=== PATIENT | female | born 2000 | race Caucasian/White ===

== ENCOUNTER 2021-06-01 12:41 | Observation (INO) | payer MEDICAID, OTHER ==
[~2021-06-01] VITALS: Ht 167.6 cm; Wt 111.1 kg
[2021-06-01] MEDS ORDERED: [UNRECOGNIZED DRUG - CODE] (12:53)
== END 2021-06-01 16:55 | disposition home or self-care (01) ==
LOC: 8 EST LDRP 12:41
PROVIDERS: ADMIT Obstetrics & Gynecology; ATTEND Obstetrics & Gynecology
DX: O26.893 Other specified pregnancy related conditions, third trimester (principal); R10.9 Unspecified abdominal pain; Z3A.32 32 weeks gestation of pregnancy
CPT/HCPCS: 59025; 76805; 76818; G0378; 99281; G0379

== ENCOUNTER 2021-07-14 17:11 | Inpatient (IN) | payer OTHER ==
[~2021-07-14] VITALS: Ht 167.6 cm; Wt 119.7 kg
[~2021-07-14 17:11] MED LIST: [UNRECOGNIZED DRUG - CODE]
[2021-07-14] MEDS ORDERED: LIDOCAINE HCL 1% 20ML VIAL (Pyxis) INJ INFIL SCH (18:00)
[2021-07-14] MEDS ORDERED: NALOXONE HCL 0.4 MG/ML 1ML VIAL IM PRN (18:00)
[2021-07-14] MEDS ORDERED: CARBOPROST TROMETHAMINE 250 MCG/ML AMPUL IM PRN (18:00)
[2021-07-14] MEDS ORDERED: RHO(D) IMMUNE GLOBULIN 300 MCG/SYR IM ONE (18:00)
[2021-07-14] MEDS ORDERED: DEXT 5%/LR + PITOCIN 20UNITS/L 1,000 ML IV SCH ×2 (18:00→21:15)
[2021-07-14] MEDS ORDERED: METHYLERGONOVINE MALEATE 0.2 MG/ML IM PRN (18:00)
[2021-07-14] MEDS ORDERED: BUTORPHANOL TARTRATE 2 MG/ML VIAL IV PRN (18:00)
[2021-07-14] MEDS: LACTATED RINGERS 1,000 ML IV SCH ×2 (18:09→19:30)
[2021-07-14] MEDS ORDERED: PENICILLIN G POTASSIUM 5 MMU in DEXT 5% WATER 100 ML IV SCH (18:30)
[2021-07-14 18:36] LABS: BASOPHILS % 0.5 % (0.0-2.0); EOSINOPHILS % 0.3 % (0.0-5.0); HEMATOCRIT. 26.9 % (36.0-48.0); HEMOGLOBIN. 8.2 g/dL (12.0-16.0); LYMPHOCYTES % 19.5 % (20.0-50.0); MEAN CORPUSCULAR HEMOGLOBIN 19.4 pg (28.0-32.0); MEAN CORPUSCULAR VOLUME 63.7 fL (81.0-99.0); MEAN PLATELET VOLUME 9.2 fl (7.4-10.4); MONOCYTES % 6.4 % (2.0-8.0); NEUTROPHILS % 73.3 % (40.0-76.0); PLATELET 475 x1000/uL (130-400); RED BLOOD CELL COUNT 4.22 mill/uL (4.2-5.4); RED CELL DISTRIBUTION WIDTH 19.9 % (11.6-14.6)
[2021-07-14 18:44] LABS: CLARITY URINE CLOUDY (CLEAR); COLOR URINE YELLOW (YELLOW); KETONES URINE NEGATIVE (NEGATIVE); LEUKOCYTE ESTERASE URINE TRACE (NEGATIVE); NITRITE URINE NEGATIVE (NEGATIVE); OCCULT BLOOD URINE TRACE (NEGATIVE); PH URINE 6.5 (4.5-8.0); PROTEIN URINE NEGATIVE (NEGATIVE); SPECIFIC GRAVITY URINE 1.011 (1.005-1.030)
[2021-07-14 18:49] LABS: CHLORIDE 107 mEq/L (98-107)
[2021-07-14 18:51] LABS: INR 0.9; PARTIAL THROMBOPLASTIN TIME 26.8 sec (23.4-31.0); PROTHROMBIN TIME 9.9 sec (9.6-11.0)
[2021-07-14 18:57] LABS: *AMPHETAMINES SCREEN URINE NEGATIVE (NEGATIVE); *BARBITURATES SCREEN URINE NEGATIVE (NEGATIVE); *BENZODIAZEPINES SCREEN URINE NEGATIVE (NEGATIVE); *COCAINE SCREEN URINE NEGATIVE (NEGATIVE); CANNABINOID URINE SCREEN NEGATIVE (NEGATIVE); METHADONE URINE SCREEN NEGATIVE (NEGATIVE); OPIATES URINE SCREEN NEGATIVE (NEGATIVE); PHENCYCLIDINE URINE SCREEN NEGATIVE (NEGATIVE)
[2021-07-14 19:17] LABS: HEPATITIS B SURFACE ANTIGEN NEGATIVE
[2021-07-14 19:33] LABS: PLATELET ESTIMATE SLIGHTLY INCREASED
[2021-07-14] MEDS ORDERED: ROPIVACAINE HCL/PF EPIDURAL 200 ML EPI SCH (20:15)
[2021-07-14] MEDS ORDERED: LANOLIN OINT 7GM TUBE TOP PRN (21:15)
[2021-07-14] MEDS ORDERED: IBUPROFEN 400MG TABLET PO PRN (21:15)
[2021-07-14] MEDS ORDERED: BISACODYL 10MG SUPP PR PRN (21:15)
[2021-07-14] MEDS ORDERED: IBUPROFEN 800MG TABLET PO PRN (21:15)
[2021-07-14] MEDS ORDERED: HEMORRHOIDAL SUPP PR PRN (21:15)
[2021-07-14] MEDS ORDERED: DIPHENHYDRAMINE 25MG CAPSULE PO PRN (21:15)
[2021-07-14] MEDS ORDERED: BENZOCAINE/LANOLIN/ALOE VERA SPRAY TOP PRN (21:15)
[2021-07-14] MEDS ORDERED: GLYCERIN/WITCH HAZEL LEAF MEDICATED PAD TOP PRN (21:15)
[2021-07-14 22:40] VITALS: BP 119/57
[2021-07-14] MEDS ORDERED: PENICILLIN G POTASSIUM 2.5 MMU in DEXTROSE 5% WATER 50 ML IV SCH (23:00)
[2021-07-14 23:10] VITALS: BP 115/60
[2021-07-14 23:40] VITALS: BP 120/72
[2021-07-15] MEDS ORDERED: IBUPROFEN 400MG TABLET PO PRN (00:15)
[2021-07-15] MEDS ORDERED: HEMORRHOIDAL SUPP PR PRN (00:15)
[2021-07-15] MEDS ORDERED: BENZOCAINE/LANOLIN/ALOE VERA SPRAY TOP PRN (00:15)
[2021-07-15] MEDS ORDERED: GLYCERIN/WITCH HAZEL LEAF MEDICATED PAD TOP PRN (00:15)
[2021-07-15 03:15] VITALS: BP 106/59
[2021-07-15 05:41] LABS: BASOPHILS % 0.5 % (0.0-2.0); EOSINOPHILS % 0.2 % (0.0-5.0); HEMATOCRIT. 23.1 % (36.0-48.0); HEMOGLOBIN. 7.1 g/dL (12.0-16.0); MEAN CORPUSCULAR HEMOGLOBIN 19.6 pg (28.0-32.0); MEAN CORPUSCULAR VOLUME 63.5 fL (81.0-99.0); MEAN PLATELET VOLUME 9.1 fl (7.4-10.4); MONOCYTES % 5.6 % (2.0-8.0); NEUTROPHILS % 77.7 % (40.0-76.0); PLATELET 400 x1000/uL (130-400); RED BLOOD CELL COUNT 3.63 mill/uL (4.2-5.4); RED CELL DISTRIBUTION WIDTH 19.8 % (11.6-14.6)
[2021-07-15] MEDS ORDERED: FERROUS SULFATE 325MG TABLET PO SCH (09:00)
[2021-07-15] MEDS ORDERED: PRENATAL VIT/FE FUMARATE/FA TABLET PO SCH (09:00)
[2021-07-15] MEDS ORDERED: SIMETHICONE 80MG TABLET CHEW PO SCH (09:00)
[2021-07-15 09:30] VITALS: BP 115/62
[2021-07-15 15:30] VITALS: BP 94/58
[2021-07-15 20:00] VITALS: BP 112/63
[2021-07-15] MEDS: ACETAMINOPHEN WITH CODEINE 300/30MG TABLET PO PRN (20:48)
[2021-07-15] MEDS ORDERED: DOCUSATE SODIUM 100MG CAPSULE PO SCH ×2 (21:00)
[2021-07-16 03:40] VITALS: BP 117/56
[2021-07-16] MEDS: ACETAMINOPHEN WITH CODEINE 300/30MG TABLET PO PRN (03:45)
[2021-07-16] MEDS ORDERED: FERROUS SULFATE 325MG TABLET PO SCH (07:30)
[2021-07-16 07:42] LABS: BASOPHILS % 0.7 % (0.0-2.0); EOSINOPHILS % 0.9 % (0.0-5.0); HEMATOCRIT. 24.1 % (36.0-48.0); HEMOGLOBIN. 7.4 g/dL (12.0-16.0); LYMPHOCYTES % 31.4 % (20.0-50.0); MEAN CORPUSCULAR HEMOGLOBIN 19.7 pg (28.0-32.0); MEAN CORPUSCULAR VOLUME 63.7 fL (81.0-99.0); MEAN PLATELET VOLUME 9.2 fl (7.4-10.4); MONOCYTES % 6.5 % (2.0-8.0); NEUTROPHILS % 60.5 % (40.0-76.0); PLATELET 381 x1000/uL (130-400); RED BLOOD CELL COUNT 3.77 mill/uL (4.2-5.4); RED CELL DISTRIBUTION WIDTH 19.8 % (11.6-14.6)
[2021-07-16 08:00] VITALS: BP 91/59
== END 2021-07-16 11:30 | disposition home or self-care (01) | DRG 560 ==
LOC: 8 EST LDRP 17:11 → 8EST 23:07
PROVIDERS: ADMIT Obstetrics & Gynecology; ATTEND Obstetrics & Gynecology
PROC: 10E0XZZ Delivery of Products of Conception, External Approach (ICD-10-PCS; principal; 2021-07-14)
PROC: 0KQM0ZZ Repair Perineum Muscle, Open Approach (ICD-10-PCS; 2021-07-14)
DX: O77.0 Labor and delivery complicated by meconium in amniotic fluid (principal); Z37.0 Single live birth; O99.12 Other diseases of the blood and blood-forming organs and certain disorders involving the immune mechanism complicating childbirth; D75.839 Thrombocytosis, unspecified; O70.1 Second degree perineal laceration during delivery; O99.02 Anemia complicating childbirth; O99.214 Obesity complicating childbirth; Z20.822 Contact with and (suspected) exposure to COVID-19; Z3A.38 38 weeks gestation of pregnancy
CPT/HCPCS: 36415; 76805; 76818; 80053; 80305; 81003; 85025; 86592; 86703; 86762; 86850; 86900; 87340; 87426; 99281; J2540; J2590; J3490; J7060; A4315